=== PATIENT | female | born 1975 | race Caucasian/White ===

== ENCOUNTER 2025-08-19 21:58 | Observation (INO) ==
--- NOTE | 2025-08-19 22:13 | Emergency Department Note ---
History of Present Illness General Chief complaint: Edema To Extremity Stated complaint: LT ARM PURPLE AND SWOLLEN Time Seen by Provider: 08/19/25 22:01 History of Present Illness This 50-year-old female who is healthy and does not smoke presents ER complaining of left forearm pain and swelling and some purple discoloration. Patient states she is always cold. No injury to the area. Patient denies chest pain, dyspnea, left axilla pain, history of DVT or PE. No trauma to the area. No other concerns per patient. No numbness or tingling. Home Medications Medication Instructions Recorded Confirmed Type clonidine HCl 0.1 mg tablet 0.1 mg PO HS 08/19/25 08/19/25 History lisdexamfetamine 60 mg capsule 60 mg PO QAM 08/19/25 08/19/25 History Allergies Allergy/AdvReac Type Severity Reaction Status Date / Time No Known Drug Allergies Allergy Unknown Verified 01/21/25 12:38 Past Med/Surg History Problem List (Updated 08/20/25 @ 00:19 by Yohana Cronin PA-C) Acute deep vein thrombosis (DVT) of left upper extremity (Acute) Acute pulmonary embolism (Acute) Microtia of right ear Otorrhea Routine gynecological examination Surgical History History of appendectomy Family History Grandmother (Maternal) Asthma Cancer Leukemia Grandfather (Paternal) Stroke Aunt Breast cancer either maternal aunt or maternal great aunt Denies family history of Ovarian cancer Prostate cancer Myocardial infarction Colorectal cancer Social History Smoking Status: Never smoker Do You Dip or Chew Tobacco: No; Hx Alcohol Use: No Hx Substance Use: No Preferred Language: Sri Lankan Communication Ability: Effective marital status: Single current occupational status: employed current occupation: [employer] Feels Safe at Home: Yes Review of Systems A total of 10 systems reviewed and were otherwise negative Physical Exam Vital Signs Vital Signs - 24 hr 08/19/25 22:00 08/19/25 22:24 08/19/25 22:30 Temperature 36.4 C L Temperature Source Temporal Artery Scan Pulse Rate 100 H 97 H 92 H Pulse Rate from SpO2 Sensor 91 H Respiratory Rate 19 Blood Pressure 147/68 H 122/65 Blood Pressure Mean 94 84 Pulse Oximetry 100 100 Oxygen Delivery Method Room Air Room Air Sepsis Recent Fever Within 48 Hours No Sepsis New/Unexplained Change in Mental Status No Sepsis Action Taken by Nursing No Action Required VITALS: Vitals are noted on the nurse's note and reviewed by myself. Vital signs stable. GENERAL: Pleasant patient, in no acute distress, nondiaphoretic, well-developed well-nourished. SKIN: Capillary reflex less than 2 seconds. HEENT: Normocephalic. PERRLA. EOMI. Nares patent. Mucous membranes moist. Neck is supple without nuchal rigidity. HEART: Regular rate and rhythm LUNGS: Clear to auscultation bilaterally without wheezes, rales or rhonchi. No retractions or accessory muscle use. MUSCULOSKELETAL: No gross musculoskeletal defects. Bilateral arms nontender to palpation. Radial pulses +2 equal present bilaterally. Left forearm slightly more swollen than the right. No discoloration noted. Sensation is intact to both hands bilaterally. No left axillary tenderness. No signs of infection to the left arm. NEURO: Patient was alert and oriented to person place and time. No focal neurological deficits. Course Administered Medications Discontinued Medications Ioversol (Optiray 320 125ml) 118 ml IV ONCE ONE Stop: 08/19/25 23:35 Last Admin: 08/19/25 23:34 Dose: 118 ml Documented By: MACI Critical Care Time Critical Care Time: Yes Total Critical Care Time: 35 I have personally spent 35 minutes of critical care time in the direct management of this patient. This includes bedside care, interpretation of diagnostic studies, and testing, discussion with consultants, patient, and family members, and other required patient management activities. This 35 minutes is in excess of all separately billable procedures. Medical Decision Making Medical Records Attestation: I reviewed the patient's medical records. Home Medications Current Medication List: was personally reviewed by me Laboratory Data Attestation: I reviewed the patient's lab results. 08/19/25 22:25 08/19/25 22:25 Lab Results 08/19/25 Range/Units 22:25 WBC 7.88 (4.8-10.8) K/ul RBC 4.04 L (4.20-5.40) M/uL Hgb 12.0 (12.0-16.0) g/dl Hct 36.9 L (37.0-47.0) % MCV 91.3 (80.0-100.0) fL MCH 29.7 (25.0-34.0) pg MCHC 32.5 (32.0-36.0) g/dL RDW Std Deviation 44.5 (36.4-46.3) fL RDW Coeff of Wilmer 13.2 (11.5-14.5) % Plt Count 206 (130-400) K/uL MPV 10.2 (9.4-12.4) fL Immature Gran % (Auto) 0.1 % Neut % (Auto) 66.3 % Lymph % (Auto) 20.9 % Nash % (Auto) 8.8 % Eos % (Auto) 3.4 % Baso % (Auto) 0.5 % Neut # (Auto) 5.22 (1.40-6.50) K/uL Lymph # (Auto) 1.65 (1.20-3.40) K/uL Nash # (Auto) 0.69 H (0.11-0.59) K/uL Eos # (Auto) 0.27 (0.00-0.50) K/uL Baso # (Auto) 0.04 (0.00-0.20) K/uL Immature Gran # (Auto) 0.01 (0.01-0.20) K/uL Sodium 137 (136-145) mmol/L Potassium 4.2 (3.5-5.1) mmol/L Chloride 105 (98-107) mmol/L Carbon Dioxide 28 (21-32) mmol/L Anion Gap 4 (3-11) BUN 16 (6-23) mg/dl Creatinine 0.73 (0.6-1.2) mg/dl Est Cr Clr Drug Dosing 80.2 ml/min eGFR 101.38 BUN/Creatinine Ratio 21.9 H (10-20) Glucose 117 H (70-99(Fasting)) mg/dl Calcium 9.0 (8.6-10.3) mg/dl Total Bilirubin 0.4 (0.2-1.0) mg/dl AST 17 (13-39) U/L ALT 5 L (7-52) U/L Alkaline Phosphatase 43 (34-104) U/L Total Creatine Kinase 74 (26-192) U/L Total Protein 7.8 (6.0-8.3) gm/dl Albumin 4.6 (3.4-5.0) gm/dl Globulin 3.2 (2.5-4.0) gm/dl Albumin/Globulin Ratio 1.4 (0.9-2) HCG, Qual Negative (Negative) Imaging Data Attestation: I personally reviewed and interpreted this imaging study as follows: Radiologist's Impression: Extremity Venous Study 08/19/25 22:11 Exam(s): US VENOUS LEFT UPPER EXTREMITY EXAM: US Duplex Left Upper Extremity Veins CLINICAL HISTORY: Reason for exam: Eval for DVT. TECHNIQUE: Real-time duplex ultrasound scan of the left upper extremity veins integrating B-mode two-dimensional vascular structure, Doppler spectral analysis, color flow Doppler imaging and compression. COMPARISON: No relevant prior studies available. FINDINGS: Deep veins: Occlusive thrombus in the left subclavian and left axillary vein. No thrombus in the left brachial vein, ulnar vein, or radial vein. Superficial veins: No thrombus in the visualized basilic and cephalic veins. Soft tissues: No acute findings. IMPRESSION: Occlusive thrombus in the left subclavian and left axillary vein. Electronically signed by: Keo Gaviria MD 08/20/25 00:10 AM Chest CTA 08/19/25 23:20 CR Exam(s): CTA CHEST IV Amt: 118 cc's optiray 320 EXAM: CT Angiography Chest With Intravenous Contrast CLINICAL HISTORY: Reason for exam: PE. TECHNIQUE: Axial computed tomographic angiography images of the chest with intravenous contrast. CTDI is 12 mGy and DLP is 366 mGy-cm. Automated exposure control was utilized for the study. A dose lowering technique was utilized adhering to the principles of ALARA. MIP reconstructed images were created and reviewed. COMPARISON: No relevant prior studies available. FINDINGS: Pulmonary arteries: Acute segmental PE within the right lower lobe. Aorta: No acute findings. Normal caliber. No dissection. Lungs: No pulmonary infarct. The lungs are clear. Pleural space: No pleural effusion. No pneumothorax. Heart: RV to LV ratio less than 1. No evidence of heart strain. Bones/joints: No acute fracture. Soft tissues: Unremarkable. Lymph nodes: Unremarkable. IMPRESSION: 1. Acute segmental PE within the right lower lobe. 2. No evidence of heart strain. Communications: Call Doctor Pulmonary Embolism Electronically signed by: Keo Gaviria MD 08/19/25 23:59 PM MDM Narrative Prior records reviewed and summarized above. Triage Nursing notes reviewed. Additional history obtained from the nursing The patient's history was concerning for swelling and pain in the arm Differential diagnosis: Etiologies such as DVT, musculoskeletal, infection, joint effusion, trauma, lymphedema, idiopathic, CHF, as well as others were entertained.. Physical examination: The physical examination revealed no signs of infection. Neurovascularly intact. ER treatment provided: An order was placed for continuous cardiac monitoring. The monitor shows a rate of 60-100 with a sinus rhythm per my interpretation. Patient was given heparin for DVT and PE On reassessment the patient felt better. Diagnostics interpreted by me: The labs Independently Interpreted by myself revealed no worrisome leukocytosis, stable H&H, negative hCG. Glucose 117. Normal CPK. Imaging studies: Imaging was reviewed and read by radiology Consultation: A consultation was placed with the hospitalist. The case was discussed and diagnostics were reviewed. The patient was evaluated in the ER for further treatment. This appears to be consistent with DVT of the left arm and PE. I did review the imaging prior to radiology reading them and saw the extensive DVT in the left upper arm and patient started on heparin. CTA was then ordered and I did see a PE in the lung. No saddle embolism. No right heart strain. Patient was reassessed multiple times. Vital signs stayed stable. Medicine was consulted case discussed. She will be admitted for PE and DVT. By the evaluation outlined above emergent etiologies such as septic joint, trauma, infection, CHF, as well as others were deemed relatively unlikely. The pt informed about the findings as listed above. All questions were answered and pleased with the treatment. The chart was completed utilizing [employer] Speech voice recognition software. Grammatical errors, random word insertions, pronoun errors, and incomplete sentences are an occassional consequence of this system due to software limitations, ambient noise, and hardware issues. Any formal questions or concerns about the content, text, or information contained within the body of this dictation should be directly addressed to the physician hospital nursing assistant for clarification. Impression & Plan Acute pulmonary embolism, Acute deep vein thrombosis (DVT) of left upper extremity Discharge Plan Visit Data Chief Complaint: Edema To Extremity Stated Complaint: LT ARM PURPLE AND SWOLLEN ED Provider: Pheasant,Coretta S. ED Midlevel Provider: Yohana Cronin Discharge Problem: Acute pulmonary embolism, Acute deep vein thrombosis (DVT) of left upper extremity Patient Disposition: Admitted As Inpatient Condition: Good Discharge Instructions Activity Restrictions/Additional Instructions: Forms Stand Alone Forms: Important Visit Information Prescriptions Prescriptions: No Action clonidine HCl 0.1 mg tablet 0.1 mg PO HS lisdexamfetamine 60 mg capsule 60 mg PO QAM Referrals Referrals: Rick De Santiago [Primary Care Provider] - Discharge Problem: Acute pulmonary embolism Qualifiers: Pulmonary embolism type: unspecified Acute cor pulmonale presence: without acute cor pulmonale Qualified Code(s): I26.99 - Other pulmonary embolism without acute cor pulmonale
[2025-08-19 22:43] LABS: Hematocrit (blood only) 36.9 % (37.0-47.0); Hemoglobin 12.0 g/dl (12.0-16.0); Immature Granulocytes # (auto) 0.01 K/uL (0.01-0.20); Immature Granulocytes % (auto) 0.1 %; Mean Corpuscular Hemoglobin 29.7 pg (25.0-34.0); Mean Corpuscular Volume 91.3 fL (80.0-100.0); Platelet Count 206 K/uL (130-400); RDW Standard Deviation 44.5 fL (36.4-46.3); Red Blood Count 4.04 M/uL (4.20-5.40); White Blood Count 7.88 K/ul (4.8-10.8)
[2025-08-19 23:00] LABS: Alanine Aminotransferase 5.0 U/L (7-52); Albumin Globulin Ratio 1.4 (0.9-2); Albumin Level 4.6 gm/dl (3.4-5.0); Alkaline Phosphatase 43.0 U/L (34-104); Anion Gap 4.0 (3-11); Bilirubin,Total 0.4 mg/dl (0.2-1.0); Blood Urea Nitrogen 16.0 mg/dl (6-23); Calcium 9.0 mg/dl (8.6-10.3); Carbon Dioxide 28.0 mmol/L (21-32); Chloride 105.0 mmol/L (98-107); Creatine Kinase 74.0 U/L (26-192); Creatinine Clr Calc Pharmacy 80.2 ml/min; Globulin 3.2 gm/dl (2.5-4.0); Glucose 117.0 mg/dl (70-99(Fasting)); Potassium 4.2 mmol/L (3.5-5.1); Sodium 137.0 mmol/L (136-145); Total Protein 7.8 gm/dl (6.0-8.3)
[2025-08-19 23:06] LABS: Pregnancy Test, Serum Negative (Negative)
[2025-08-19] MEDS: OPTIRAY 320 125ml IV ONE (23:34)
--- NOTE | 2025-08-19 23:46 | History & Physical Report ---
Date of Service August 19, 2025 Assessment & Plan (1) Acute pulmonary embolism: (2) Acute deep vein thrombosis (DVT) of left upper extremity: Plan 50-year-old female PMHx prothrombin deficiency presenting for LUE swelling and discoloration starting 1 hour [facility]. ED evaluation reveals stable H/H, CBC overall unremarkable with BUN/Cr ratio slightly elevated. Venous doppler of UE reveals DVT and chest CTA with segmental PE. Admission for management of PE/DVT. #PE RLL/DVT of LUE H/o known bleeding disorder, prothrombin deficiency. No prior history of DVT/PE. Without chest pain, SOB. No hypoxia, but does remain slightly tachycardic. Admission and management with heparin, to transition to eliquis. - CBC H&H 12.0/36.9; PT/INR pending, anti-Xa pending - PT/INR am - EKG pending - Venous Doppler LUE occlusive thrombus in L subclavian and L axillary vein - Chest CTA acute segmental PE within RLL, no heart strain - Echo pending - Heparin drip initiated - continue - Start Eliquis in AM -- continue lifelong treatment with such - Consider heme consult as appropriate #Psych- Vyvanse, clonidine prn - Continue Vyvanse, pt rarely uses clonidine so hold at admission Dispo: Admit, PCU VTE Prophylaxis: Heparin - treatment dose This document was dictated utilizing [employer]. Please excuse any grammatical errors that may be secondary to use of this software. Admission and Anticipated Discharge Date Admission Date: 08/20/2025 History of Present Illness Chief Complaint: UE edema Primary Care Provider: Rick De Santiago 50-year-old female PMHx prothrombin deficiency presenting for LUE swelling and discoloration starting 1 hour [facility]. Pt states that her hand seemed to have been a slightly different color than her R hand, almost purple in nature. She then began to notice that her LUE was more edematous to palpation than her RUE, and she was concerned that her pulses were different bilaterally. 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 The patient has not had a PE/DVT in the past, but does admit to a history of prothrombin (factor II) deficiency, which her mother also has. She has some numbness in her L hand, but denies pain or additional symptoms. No chest pain, SOB, palpitations, or dizziness. Overall, the pt denies additional symptoms. Her son adds that the patient is overall healthy, eating good amounts of fiber and trying to stay active. The pt is up to date on all cancer screenings to include mammogram and colonoscopy. ED evaluation reveals CBC without leukocytosis, H&H 12.0/36.9; CMP BUN/creatinine ratio 21.9, glucose 117, ALT 5; negative; extremity venous study with DVT of subclavian and axillary; chest CTA with RLL PE, no heart strain.; Patient was started on heparin drip in ED. Please see Dr. Kumar's attestation for adjustments/additions to treatment plan. Allergies Allergy/AdvReac Type Severity Reaction Status Date / Time No Known Drug Allergies Allergy Unknown Verified 01/21/25 12:38 Home Medications Medication Instructions Recorded Confirmed Type clonidine HCl 0.1 mg tablet 0.1 mg PO HS 08/19/25 08/19/25 History lisdexamfetamine 60 mg capsule 60 mg PO QAM 08/19/25 08/19/25 History Past Med/Surg History Problem List Acute deep vein thrombosis (DVT) of left upper extremity (Acute) Acute pulmonary embolism (Acute) Microtia of right ear Otorrhea Routine gynecological examination Surgical History History of appendectomy Family History Grandmother (Maternal) Asthma Cancer Leukemia Grandfather (Paternal) Stroke Aunt Breast cancer either maternal aunt or maternal great aunt Denies family history of Ovarian cancer Prostate cancer Myocardial infarction Colorectal cancer Social History Smoking Status: Never smoker Second Hand Exposure: No; Do You Dip or Chew Tobacco: No; Tobacco Cessation Education Requested by Patient: No Hx Alcohol Use: No Hx Substance Use: No Preferred Language: Polish Communication Ability: Effective [employer] Required: No Beliefs That Will Affect Care: None marital status: Single Current Living Situation: Family Current Living Situation Comment: lives with son current occupational status: employed current occupation: [employer] Other Information That Helps Us Care for You: No Feels Safe at Home: Yes Safety Concerns: Feels Safe At This Time Assistive Devices: Glasses Review of Systems Review of Systems: All systems reviewed & are unremarkable except as noted in Subjective Physical Exam Physical Exam: General: No acute distress Skin: Warm and dry; L hand dusky coloration Head: Normocephalic, atraumatic; wearing head scarf Eyes: PERRL, conjunctivae clear, sclera non-icteric; wearing glasses ENT: External ear and ear canal without swelling; nose atraumatic; good dentition, tongue normal appearance, pharynx normal Neck: Supple, no LAD Cardio: Borderline tachycardic at times, regular rhythm, no M/G/R, S1 and S2 normal Resp: No respiratory distress, Lungs CTA in all lobes bilaterally, no wheezes, rales, or rhonchi Abdomen: Soft, symmetric, nontender; No masses or hepatosplenomegaly; Bowel sounds normoactive MSK: No deformities; pulses palpable and equal throughout; mild edema of LUE compared to RUE, nonpitting. Neuro: Awake, alert; Sensation intact bilaterally; CN grossly intact Psych: Appropriate mood and affect; good judgement and insight. Son present in room at time of visit. Results & Data Results & Data Vital Signs (Past 12 Hours) Vital Signs Temp Pulse Resp BP Pulse Ox O2 Del Method 08/19/25 22:30 92 H 19 122/65 100 Room Air 08/19/25 22:24 97 H 08/19/25 22:00 36.4 C L 100 H 147/68 H 100 Room Air Laboratory Results 08/19/25 22:25 WBC 7.88 RBC 4.04 L Hgb 12.0 Hct 36.9 L MCV 91.3 MCH 29.7 MCHC 32.5 RDW Std Deviation 44.5 RDW Coeff of Wilmer 13.2 Plt Count 206 MPV 10.2 Immature Gran % (Auto) 0.1 Neut % (Auto) 66.3 Lymph % (Auto) 20.9 [place] % (Auto) 8.8 Eos % (Auto) 3.4 Baso % (Auto) 0.5 Neut # (Auto) 5.22 Lymph # (Auto) 1.65 [place] # (Auto) 0.69 H Eos # (Auto) 0.27 Baso # (Auto) 0.04 Immature Gran # (Auto) 0.01 Sodium 137 Potassium 4.2 Chloride 105 Carbon Dioxide 28 Anion Gap 4 BUN 16 Creatinine 0.73 Est Cr Clr Drug Dosing 80.2 eGFR 101.38 BUN/Creatinine Ratio 21.9 H Glucose 117 H Calcium 9.0 Total Bilirubin 0.4 AST 17 ALT 5 L Alkaline Phosphatase 43 Total Creatine Kinase 74 Total Protein 7.8 Albumin 4.6 Globulin 3.2 Albumin/Globulin Ratio 1.4 HCG, Qual Negative Diagnostic Findings Extremity Venous Study 08/19/25 22:11 Exam(s): US VENOUS LEFT UPPER EXTREMITY EXAM: US Duplex Left Upper Extremity Veins CLINICAL HISTORY: Reason for exam: Eval for DVT. TECHNIQUE: Real-time duplex ultrasound scan of the left upper extremity veins integrating B-mode two-dimensional vascular structure, Doppler spectral analysis, color flow Doppler imaging and compression. COMPARISON: No relevant prior studies available. FINDINGS: Deep veins: Occlusive thrombus in the left subclavian and left axillary vein. No thrombus in the left brachial vein, ulnar vein, or radial vein. Superficial veins: No thrombus in the visualized basilic and cephalic veins. Soft tissues: No acute findings. IMPRESSION: Occlusive thrombus in the left subclavian and left axillary vein. Electronically signed by: Keo Gaviria MD 08/20/25 00:10 AM Chest CTA 08/19/25 23:20 CR Exam(s): CTA CHEST IV Amt: 118 cc's optiray 320 EXAM: CT Angiography Chest With Intravenous Contrast CLINICAL HISTORY: Reason for exam: PE. TECHNIQUE: Axial computed tomographic angiography images of the chest with intravenous contrast. CTDI is 12 mGy and DLP is 366 mGy-cm. Automated exposure control was utilized for the study. A dose lowering technique was utilized adhering to the principles of ALARA. MIP reconstructed images were created and reviewed. COMPARISON: No relevant prior studies available. FINDINGS: Pulmonary arteries: Acute segmental PE within the right lower lobe. Aorta: No acute findings. Normal caliber. No dissection. Lungs: No pulmonary infarct. The lungs are clear. Pleural space: No pleural effusion. No pneumothorax. Heart: RV to LV ratio less than 1. No evidence of heart strain. Bones/joints: No acute fracture. Soft tissues: Unremarkable. Lymph nodes: Unremarkable. IMPRESSION: 1. Acute segmental PE within the right lower lobe. 2. No evidence of heart strain. Communications: Call Doctor Pulmonary Embolism Electronically signed by: Keo Gaviria MD 08/19/25 23:59 PM Medications Administered Heparin drip IV Code Status & VTE Plan Code Status Full Supervising Physician Co-Signing Physician Notes Patient seen examined, chart reviewed, case discussed with CODY Cronin I agree with assessment plan as document above. In brief, patient is a 50-year-old female with history of prothrombin gene mutation, no prior VTE presenting with concern for discoloration of her left upper extremity. Patient found to have clot involving the subclavian as well as axillary vessels of the left upper extremity. Also with right lower lobe PE. She is afebrile, mildly tachycardic otherwise stable Skin without rash, slight discoloration of left upper extremity HEENTmoist mucous membranes, neck supple Heart+ S1, S2, regular, no murmur/rub/gallops Lungs CTA anteriorly Abdomen soft, nontender, nondistended Extremitiesedema to the left upper extremity Assessment/plan Admit to PCU Check 2D echo Heparin drip for now with transition to NOAC in the morning Consider discussion with vascular surgery regarding direct thrombolytic of left upper extremity thrombus. Due to extent of patient's clot, Involvement of subclavian axillary vessels, she may be at high risk for post thrombotic syndrome. Remainder of above PG Care Time/CCT Total # of Minutes Spent Total Time Spent with Patient: Total time spent is greater than 50% in coordination of care (as documented) at patient's floor/unit and/or counseling patient: Coding Level of Care Code 25868 INT INP/OBS CARE 3/75MIN Diagnoses Acute pulmonary embolism I26.99 Acute cor pulmonale presence: without acute cor pulmonale Pulmonary embolism type: unspecified Acute deep vein thrombosis (DVT) of left upper extremity I82.622 (1) Acute pulmonary embolism Acute cor pulmonale presence: without acute cor pulmonale Pulmonary embolism type: unspecified Qualified Code(s): I26.99 - Other pulmonary embolism without acute cor pulmonale
--- NOTE | 2025-08-20 | CT Scan Report ---
Exam(s): CTA CHEST IV Amt: 118 cc's optiray 320 EXAM: CT Angiography Chest With Intravenous Contrast CLINICAL HISTORY: Reason for exam: PE. TECHNIQUE: Axial computed tomographic angiography images of the chest with intravenous contrast. CTDI is 12 mGy and DLP is 366 mGy-cm. Automated exposure control was utilized for the study. A dose lowering technique was utilized adhering to the principles of ALARA. MIP reconstructed images were created and reviewed. COMPARISON: No relevant prior studies available. FINDINGS: Pulmonary arteries: Acute segmental PE within the right lower lobe. Aorta: No acute findings. Normal caliber. No dissection. Lungs: No pulmonary infarct. The lungs are clear. Pleural space: No pleural effusion. No pneumothorax. Heart: RV to LV ratio less than 1. No evidence of heart strain. Bones/joints: No acute fracture. Soft tissues: Unremarkable. Lymph nodes: Unremarkable. IMPRESSION: 1. Acute segmental PE within the right lower lobe. 2. No evidence of heart strain. Communications: Call Doctor Pulmonary Embolism Electronically signed by: Keo Gaviria MD 08/19/25 23:59 PM
--- NOTE | 2025-08-20 00:11 | Ultrasound Report ---
Exam(s): US VENOUS LEFT UPPER EXTREMITY EXAM: US Duplex Left Upper Extremity Veins CLINICAL HISTORY: Reason for exam: Eval for DVT. TECHNIQUE: Real-time duplex ultrasound scan of the left upper extremity veins integrating B-mode two-dimensional vascular structure, Doppler spectral analysis, color flow Doppler imaging and compression. COMPARISON: No relevant prior studies available. FINDINGS: Deep veins: Occlusive thrombus in the left subclavian and left axillary vein. No thrombus in the left brachial vein, ulnar vein, or radial vein. Superficial veins: No thrombus in the visualized basilic and cephalic veins. Soft tissues: No acute findings. IMPRESSION: Occlusive thrombus in the left subclavian and left axillary vein. Electronically signed by: Keo Gaviria MD 08/20/25 00:10 AM
[2025-08-20] MEDS: Heparin IV Adult Wt-Based Standard w/ INITIAL Bolus Protocol IV STA (00:49)
[2025-08-20] MEDS: HEPARIN SOD (PORCINE) 1000 UNIT/ML IV ONE (00:50)
[2025-08-20] MEDS: HEPARIN 25000 UNIT/500 ML D5W 25,000 UNITS/500 ML BAG IV SCH (00:52)
[2025-08-20 01:04] LABS: ANTI-Xa, UFH(UnfractionatedHep < 0.10 IU/ml (0.3-0.7)
[2025-08-20 01:14] LABS: INR 1.1 (0.9-1.1); Partial Thromboplastin Time 26 Seconds (21-31); Prothrombin Time 11.3 Seconds (9.0-12.0)
[2025-08-20] MEDS ORDERED: ONDANSETRON INJ 2 MG/ML 2 ML VIAL IV PRN (01:35)
[2025-08-20] MEDS ORDERED: MELATONIN 3 MG TAB PO PRN (01:35)
[2025-08-20] MEDS ORDERED: POLYETHYLENE (MIRALAX) 17 GM PACK PO PRN (01:35)
[2025-08-20 07:54] LABS: INR 1.1 (0.9-1.1); Prothrombin Time 11.6 Seconds (9.0-12.0)
[2025-08-20 07:58] LABS: Partial Thromboplastin Time 93 Seconds (21-31)
--- NOTE | 2025-08-20 07:58 | Hospitalist Progress Note ---
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 ED evaluation reveals stable H/H, CBC overall unremarkable with BUN/Cr ratio slightly elevated. Venous doppler of UE reveals DVT and chest CTA with segmental PE. Admission for management of PE/DVT. #PE RLL/DVT of LUE H/o known bleeding disorder, prothrombin deficiency. No prior history of DVT/PE. Without chest pain, SOB. No hypoxia, but does remain slightly tachycardic. Admission and management with heparin, to transition to eliquis. - CBC H&H 12.0/36.9; PT/INR pending, anti-Xa pending - PT/INR am - EKG pending - Venous Doppler LUE occlusive thrombus in L subclavian and L axillary vein - Chest CTA acute segmental PE within RLL, no heart strain - Echo pending - Heparin drip initiated - continue - Start Eliquis in AM -- continue lifelong treatment with such - Consider heme consult as appropriate #Psych- Vyvanse, clonidine prn - Continue Vyvanse, pt rarely uses clonidine so hold at admission Dispo: Admit, PCU VTE Prophylaxis: Heparin - treatment dose This document was dictated utilizing [employer]. Please excuse any grammatical errors that may be secondary to use of this software. Admission and Anticipated Discharge Date Admission Date: August 20, 2025 Subjective No acute events overnight. This morning Review of Systems Review of Systems: As per HPI Physical Exam Physical Exam: Gen: NAD HENT: Normocephalic, atraumatic. External ear without deformities. Trachea midline, no thyromegaly Cardio: RRR, no murmurs or clicks. Resp: CTAB, Equal bilateral chest rise, no increased work of breathing GI: Non distended, soft, non tender, normoactive bowel sounds MSK: Moving all 4 extremities independently Skin: Dry, of normal skin tone, Neuro: A& O x 3, normal affect Results & Data Results & Data Vital Signs (Past 12 Hours) Vital Signs Temp Pulse Pulse Resp BP BP Pulse Ox 08/20/25 07:44 36.6 C 97 H 20 121/75 99 08/20/25 07:43 76 10/04/25 02:02 36.8 C 100 H 18 131/76 97 08/20/25 01:56 119 H 08/20/25 01:16 36.7 C 08/20/25 01:00 106 H 17 126/76 96 08/20/25 00:00 110 H 15 131/93 99 08/19/25 22:30 92 H 19 122/65 100 08/19/25 22:24 97 H 08/19/25 22:00 36.4 C L 100 H 147/68 H 100 O2 Del Method 08/20/25 07:44 Room Air 08/20/25 07:43 08/20/25 02:02 Room Air 08/20/25 01:56 08/20/25 01:16 08/20/25 01:00 Room Air 08/20/25 00:00 Room Air 08/19/25 22:30 Room Air 08/19/25 22:24 08/19/25 22:00 Room Air (1) Acute pulmonary embolism Acute cor pulmonale presence: without acute cor pulmonale Pulmonary embolism type: unspecified Qualified Code(s): I26.99 - Other pulmonary embolism without acute cor pulmonale
[2025-08-20 07:59] LABS: ANTI-Xa, UFH(UnfractionatedHep 0.81 IU/ml (0.3-0.7)
--- NOTE | 2025-08-20 10:50 | Vascular Surgery Consultation ---
Date of Consultation August 20, 2025 Assessment & Plan (1) Acute deep vein thrombosis (DVT) of left upper extremity: She has very mild symptoms due to the left upper extremity DVT. Agree with anticoagulation. Agree with hematologic evaluation. Could consider referral to a center that does first rib resection for subacute evaluation. Will defer that decision to primary team and patient. No indication for acute thrombolysis. Please call with questions. History of Present Illness Attending Physician: Casey Basurto DO History of Present Illness Asked to evaluate this 50yo female with left upper extremity DVT and segmental pulmonary embolism. Patient drove back and forth to [place] yesterday (approximately 6 hours). Last night noticed swelling and mild numbness in left upper extremity. Came to ED where ultrasound showed LUE axillosubclavian DVT. CTA chest then revealed segmental pulmonary embolism. Patient denies any chest pain, shortness of breath. Started on heparin. Numbness has improved slightly and is very mild overall. No prior history of DVT. Nonsmoker. No hormone therapy. 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 Has a son who is heterozygous for Factor 5. Has not been on any anticoagulation. Hypercoagulable disorder discovered during workup for her mother who developed nonprovoked DVT and was diagnosed with homozygous Factor 2. Allergies Allergy/AdvReac Type Severity Reaction Status Date / Time No Known Drug Allergies Allergy Unknown Verified 01/21/25 12:38 Home Medications Medication Instructions Recorded Confirmed Type clonidine HCl 0.1 mg tablet 0.1 mg PO HS 08/19/25 08/19/25 History lisdexamfetamine 60 mg capsule 60 mg PO QAM 08/19/25 08/19/25 History Patient History Surgical History History of appendectomy Family History Grandmother (Maternal) Asthma Cancer Leukemia Grandfather (Paternal) Stroke Aunt Breast cancer either maternal aunt or maternal great aunt Denies family history of Ovarian cancer Prostate cancer Myocardial infarction Colorectal cancer Social History Smoking Status: Never smoker Second Hand Exposure: No; Do You Dip or Chew Tobacco: No; Tobacco Cessation Education Requested by Patient: No Hx Alcohol Use: No Hx Substance Use: No Preferred Language: [place] Citizen Communication Ability: Effective Dispatch Associate Required: No Beliefs That Will Affect Care: None marital status: Single Current Living Situation: Family Current Living Situation Comment: lives with son current occupational status: employed current occupation: [employer] Other Information That Helps Us Care for You: No Feels Safe at Home: Yes Safety Concerns: Feels Safe At This Time Assistive Devices: Glasses Physical Exam Physical Exam: Comfortable. Mild LUE swelling. No neurologic compromise. 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 Normal sensation. There are visible surface veins in the left upper extremity approaching the chest wall. She thinks these may be chronic but today appear more pronounced than typical. Left radial/ulnar pulse normal. No shortness of breath. Results & Data Vital Signs (Past 12 Hours) Vital Signs Temp Pulse Pulse Resp BP BP Pulse Ox 08/20/25 07:44 36.6 C 97 H 20 121/75 99 08/20/25 07:43 76 08/20/25 02:02 36.8 C 100 H 18 131/76 97 08/20/25 01:56 119 H 08/20/25 01:16 36.7 C 08/20/25 01:00 106 H 17 126/76 96 08/20/25 00:00 110 H 15 131/93 99 O2 Del Method 08/20/25 07:44 Room Air 08/20/25 07:43 08/20/25 02:02 Room Air 08/20/25 01:56 08/20/25 01:16 08/20/25 01:00 Room Air 08/20/25 00:00 Room Air Diagnostic Findings CTA and ultrasound reviewed. Results per HPI PG Care Time/CCT Total # of Minutes Spent Total Time Spent with Patient: Total time spent is greater than 50% in coordination of care (as documented) at patient's floor/unit and/or counseling patient: Coding Level of Care Code 71141 IN/OBS CONSULT LVL 3,45M Diagnoses Acute deep vein thrombosis (DVT) of left upper extremity I82.622
--- NOTE | 2025-08-20 11:54 | Electrocardiogram Report ---
Test Reason : Blood Pressure : */* mmHG Vent. Rate : 101 BPM Atrial Rate : 101 BPM P-R Int : 134 ms QRS Dur : 66 ms QT Int : 340 ms P-R-T Axes : 62 66 37 degrees QTcB Int : 440 ms Sinus tachycardia Otherwise normal ECG When compared with ECG of 07-Nov-2021 22:37, Premature atrial complexes are no longer Present Confirmed by Zac Horn ([id number]) on 08/20/2025 11:54:05 AM Referred By: REFERRED SELF Confirmed By: Zac Horn
[2025-08-20 11:56] VITALS: BP 132/79; RESP 21; TEMP 98.4; O2SAT 100
--- NOTE | 2025-08-20 12:43 | XCELERA ---
[id number]
--- NOTE | 2025-08-20 13:41 | Ultrasound Report ---
Technique: Venous ultrasound evaluation was performed utilizing grayscale, color Doppler and wave form evaluation. Images were also obtained with and without compression Findings: The bilateral common femoral, superficial femoral, popliteal, and visualized calf veins demonstrate normal anechoic lumens with full compressibility. Normal flow is seen on color Doppler images. Expected waveforms were produced with augmentation maneuvers Impression: No evidence of deep venous thrombosis Electronically signed by Ted Salinas 08-20-2025 13:41 PM
[2025-08-20 14:31] VITALS: PULSE 86
[2025-08-20] MEDS ORDERED: APIXABAN 5 MG TABLET PO ONE (14:31)
--- NOTE | 2025-08-20 15:11 | Discharge Summary ---
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 Pt states that her hand seemed to have been a slightly different color than her R hand, almost purple in nature. She then began to notice that her LUE was more edematous to palpation than her RUE, and she was concerned that her pulses were different bilaterally. 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 The patient has not had a PE/DVT in the past, but does admit to a history of heterozygous prothrombin (factor II) deficiency, which her mother also has. She has some numbness in her L hand, but denies pain or additional symptoms. No chest pain, SOB, palpitations, or dizziness. Overall, the pt denies additional symptoms. Her son adds that the patient is overall healthy, eating good amounts of fiber and trying to stay active. The pt is up to date on all cancer screenings to include mammogram and colonoscopy. ED evaluation reveals CBC without leukocytosis, H&H 12.0/36.9; CMP BUN/creatinine ratio 21.9, glucose 117, ALT 5; negative; extremity venous study with DVT of subclavian and axillary; chest CTA with RLL PE, no heart strain.; Patient was started on heparin drip in ED. Specialty Data Family Medicine Discharge exam Alert and oriented. No distress appreciated. 132/79, 86, 21, 36.9, 100% room air pleasant alert and oriented. Subtle edema left upper extremity when compared to right. Radial pulses strong. Heart regular rate and rhythm Lungs clear throughout with non labored respirations Discharge Data Consultations 08/19/25 23:29 ED Decision to Admit Stat 08/20/25 09:14 Consult Vascular Surgery Routine Hospital Course (1) Acute pulmonary embolism: (2) Acute deep vein thrombosis (DVT) of left upper extremity: Plan #PE RLL/DVT of LUE Patient was admitted to the medical floor on a heparin drip. She was seen in consultation by vascular surgery. Given the minimal amount of edema, non no recommendation was made for intervention. Vascular service did recommend outpatient consideration for first rib removal. Patient has a previous known history of heterozygous prothrombin mutation. This was tested based on her mother's known history of homozygous prothrombin mutation. The patient self also had testing for other thrombophilias including negative factor V Leiden, normal protein C&S, negative lupus anticoagulant, normal antiphospholipid antibodies. Once it was determined that no intervention was necessary, the patient was transition from the heparin drip to Eliquis 10 mg. This occurred at 1600 hrs. Since she is an early riser, she will take the next dose between 0400 and 0500 tomorrow. Discussed that she can have a 1 hour gerry period if she would like to further transition the dosing schedule. We will see her in the office within 2 weeks to discuss referral/consultation with regards to the first rib. Also discussed referral to hematology to help with deciding duration of anticoagulation. Prescription for Eliquis 5 mg, #74 was confirmed to [facility]. Patient was given a prescription benefit card to cover the first 30 days. Discharge Instructions 1) Eliquis 10 mg twice daily for the first 7 days, then 5 mg daily. Dosing instructions and medication information provided to patient upon discharge. 2) PCP follow-up in 1-2 weeks. 3) Consideration/need for referral to surgery and/or hematology to be discussed at that visit. Supervising Physician Co-Signing Physician Notes Patient seen examined, chart reviewed, case discussed with CODY Cronin I agree with assessment plan as document above. In brief, patient is a 50-year-old female with history of prothrombin gene mutation, no prior VTE presenting with concern for discoloration of her left upper extremity. Patient found to have clot involving the subclavian as well as axillary vessels of the left upper extremity. Also with right lower lobe PE. She is afebrile, mildly tachycardic otherwise stable Skin without rash, slight discoloration of left upper extremity HEENTmoist mucous membranes, neck supple Heart+ S1, S2, regular, no murmur/rub/gallops Lungs CTA anteriorly Abdomen soft, nontender, nondistended Extremitiesedema to the left upper extremity Assessment/plan Admit to PCU Check 2D echo Heparin drip for now with transition to NOAC in the morning Consider discussion with vascular surgery regarding direct thrombolytic of left upper extremity thrombus. Due to extent of patient's clot, Involvement of subclavian axillary vessels, she may be at high risk for post thrombotic syndrome. Remainder of above
[2025-08-20] MEDS ORDERED: [UNRECOGNIZED DRUG - REMARK] ONE (16:00)
[2025-08-20] MEDS: APIXABAN 5 MG TABLET PO ONE (16:12)
== END 2025-08-20 16:26 | disposition home or self-care (01) | DRG 299 ==
LOC: ED 21:58 → SUATTDRO 08-20 00:23 → 4W 08-20 00:23 → INTOOBSV 08-20 00:23 → 4W 08-20 01:16